=== PATIENT | male | born 2005 | race Two or more races ===

== ENCOUNTER 2025-03-04 16:40 | Emergency (ER) | payer MEDICAID, OTHER ==
[~2025-03-04] VITALS: Ht 180.3 cm; Wt 63.0 kg
[2025-03-04 19:44] LABS: Hematocrit 49.6 % (41.0-53.0); Hemoglobin 16.6 g/dL (13.5-17.5); Mean Corpuscular Hemoglobin 29.4 pg (28.0-32.0); Mean Corpuscular Volume 88.0 fL (80.0-100.0); Nucleated Red Blood Cells % 0.2 %
[2025-03-04 19:49] LABS: Alanine Aminotransferase 25 U/L (7-40); Alkaline Phosphatase 75 U/L (46-116); Anion Gap 11 (5-15); BUN/Creatinine Ratio 6.8 (10.0-20.0); Calcium 9.8 mg/dL (8.7-10.4); Carbon Dioxide 26 mmol/L (20-31); Chloride 103 mmol/L (98-107); Glucose 103 mg/dL (74-106); Potassium 3.6 mmol/L (3.5-5.1); Sodium 140 mmol/L (136-145); Total Protein 7.9 g/dL (5.7-8.2)
[2025-03-04 19:50] LABS: Bilirubin, Total 0.9 mg/dL (0.2-1.0)
[2025-03-04 19:54] LABS: Albumin 5.2 g/dL (3.2-4.8); Blood Urea Nitrogen 6 mg/dL (9-23)
--- NOTE | 2025-03-04 21:10 | ED.PDOC ---
Psychiatric HPI Comments HPI: 19-year-old male came to ER for mental health issues. Patient states he has been feeling suicidal, "doesn't want to be here anymore" for the past 3 weeks. Has plans of cutting himself. Denies being homicidal. Denies any hallucinations. Denies taking any drugs Past Medical History: Denies Past Surgical History: Denies Social History: Medications: Allergies: HPI: Poor Historian. Past Medical History: Past Surgical History: REVIEW OF SYSTEMS: CONSTITUTIONAL: Denies acute: fever, diaphoresis, chills, generalized weakness. HEAD: Denies acute: headache, photophobia Eyes: Denies acute: Double vision, vision loss, eye pain, eye discharge. EARS: Denies acute: tinnitus, hearing loss, ear discharge, ear pain, THROAT: Denies acute: sore throat, swelling, difficulty swallowing , pain with swallowing, change in voice. NECK: Denies acute: neck pain, neck swelling, stiff neck. HEART: Denies acute : chest pain, palpitations, LUNGS: Denies acute: SOB, wheezing, cough, hemoptysis ABDOMEN: Denies acute: abdominal pain, Nausea, Vomiting, diarrhea, melena , hematemesis, hematochezia SKIN: Denies acute: rash, redness, lesions, itchiness. EXTREMITIES: Denies acute: calf pain, numbness, tingling, weakness, denies pain in extremity. Denies acute: Low back pain. Neuro: Denies acute: focal neurological deficit, motor or sensory focal neurological deficit, tremors, seizure like activity, confusion, dizziness, change in mental status, loss of bowel or bladder function, cauda equina like symptoms. : Denies acute: dysuria, hematuria, flank pain, increase in urinary frequency. PSYCH: Denies acute: hallucination, , homicidal ideation. PHYSICAL EXAM: General: ----no----acute distress, awake and alert. Head: normocephalic, atraumatic. No raccoon's eyes, no alcaraz sign. Neck: supple, trachea is midline, no swelling. Throat: Normal phonation. Eyes:, no erythema, no purulent discharge, no proptosis, no icterus. Heart: regular rate, regular rhythm, no significant murmur appreciated. Lungs: no apparent respiratory distress, Able to speak in full sentences. No wheezing, no rhonchi, no crackles. No stridors Clear to auscultation bilaterally. Abdomen: non tender to palpation, non distended, soft, no guarding, no rebound, + bowel sounds. Noted left upper extremity healed findings due to self-harming in the past. Neuro: Awake, Alert, oriented to name, self, situation, follows commands GCS=15. Speech is normal. Skin: no petechia, no purpura, no cyanosis, non-pale, not jaundice. Lower extremities: --no - Pitting edema no deformity, no focal swelling, no calf TTP. Makes eye contact. moves all four extremities. Face: no apparent facial droop. Ambulating in the ED independently. ED COURSE: DISCLAIMER: This medical document was created using an electronic medical record system with voice recognition software and computerized dictation system. Although this d ocument has been carefully reviewed, there might still be some phonetic and typographical errors. Occasional wrong-word or "sound-alike" substitutions may have occurred due to the inherent limitations of voice recognition software. These areas are purely typographical due to imperfections of the software programs and do not reflect any compromise in the patient's medical care. Please read the chart carefully and recognize, using context, where these substitutions have occurred. Chief Complaint: Suicidal Time Seen by MD: 21:09 Reviewed Notes: Nurses Notes, Allergies Information Source: Patient Mode of Arrival: Ambulatory Severity: Unable to Care for Self, Unable to Control Self Was a procedure done? Was a procedure done?: No Psych Differential Dx Psych. Differential Dx: Anxiety, Depression, Hopeless, Suicidal Suicidal Differential Dx: Alcohol Abuse, Anxiety, Bipolar Disorder, Conversion Disorder, Depression, Homicidal, Laceration, Panic Disorder, Personality Disorder, Schizoprenia, Substance Abuse X-Ray, Labs, Meds, VS Vital Signs Date Time Temp Pulse Resp B/P (MAP) Pulse Ox O2 Delivery O2 Flow Rate FiO2 03/04/25 19:30 98.1 106 18 122/70 (87) 99 98.1 03/04/25 19:30 Room Air* 0 21 03/04/25 16:42 97.6 126 18 135/96 97 97.6 Lab Test 03/04/25 20:15 03/04/25 17:20 Range/Units Urine Opiates Screen Neg NEGATIVE Urine Fentanyl Screen Neg NEGATIVE Urine Barbiturates Screen Neg NEGATIVE Urine Phencyclidine Screen Neg NEGATIVE Urine Amphetamines Screen Neg NEGATIVE Urine Benzodiazepines Screen Neg NEGATIVE Urine Cocaine Screen Neg NEGATIVE Urine Cannabinoids Screen Neg NEGATIVE White Blood Count 9.0 4.4-10.8 10^3/uL Red Blood Count 5.63 4.5-5.90 10^6/uL Hemoglobin 16.6 13.5-17.5 g/dL Hematocrit 49.6 41.0-53.0 % Mean Corpuscular Volume 88.0 80.0-100.0 fL Mean Corpuscular Hemoglobin 29.4 28.0-32.0 pg Mean Corpuscular Hemoglobin Concent 33.4 32.0-36.0 g/dL Red Cell Distribution Width 14.1 11.8-14.3 % Platelet Count 294 140-450 10^3/uL Mean Platelet Volume 7.8 6.9-10.8 fL Neutrophils (%) (Auto) 68.1 37.0-80.0 % Lymphocytes (%) (Auto) 18.7 10.0-50.0 % Monocytes (%) (Auto) 11.3 0.0-12.0 % Eosinophils (%) (Auto) 1.3 0.0-7.0 % Basophils (%) (Auto) 0.6 0.0-2.0 % Neutrophils # (Auto) 6.1 1.6-8.6 10 ^3/uL Lymphocytes # (Auto) 1.7 0.4-5.4 10 ^3/uL Monocytes # (Auto) 1.0 0-1.3 10 ^3/uL Eosinophils # (Auto) 0.1 0-0.8 10 ^3/uL Basophils # (Auto) 0.1 0-0.2 10 ^3/uL Nucleated Red Blood Cells 0.2 % Sodium Level 140 136-145 mmol/L Potassium Level 3.6 3.5-5.1 mmol/L Chloride Level 103 98-107 mmol/L Carbon Dioxide Level 26 20-31 mmol/L Anion Gap 11 5-15 Blood Urea Nitrogen 6 L 9-23 mg/dL Creatinine 0.88 0.700-1.30 mg/dL Glomerular Filtration Rate Calc 126 >90 mL/min BUN/Creatinine Ratio 6.8 L 10.0-20.0 Serum Glucose 103 74-106 mg/dL Calcium Level 9.8 8.7-10.4 mg/dL Total Bilirubin 0.9 0.2-1.0 mg/dL Aspartate Amino Transferase (AST) 27 13-40 U/L Alanine Aminotransferase (ALT) 25 7-40 U/L Alkaline Phosphatase 75 46-116 U/L Total Protein 7.9 5.7-8.2 g/dL Albumin 5.2 H 3.2-4.8 g/dL Acetaminophen Level < 2.0 L 10.0-20.0 UG/ML Plasma/Serum Blood Alcohol 3.7 <10 mg/dL Time of 1ST Reevaluation: 21:07 Reevaluation 1ST: Unchanged Patient Education/Counseling: Diagnosis, Treatment Family Education/Counseling: No Family Present Assigned to Dr. dr. Arenas Comments MDM: patient presented with the above HPI.--suicidal ideation/psych evaluati on----workup was initiated. patient was found with the above mentioned diagnosis. the following medications were ordered: please refer to order lists of meds and tests obtained by myself Dr. Trevino. Patient ED course and VS have been stabilized. Patient has been reassessed in the ED and remained in a stable condition. Pertinent incidental findings were discussed with the patient and/or family. Patient/family voices understanding and is agreeable with plan. Patient has been observed in the ED adequate length of time to insure improvement/stability. Escalation of care considered: Consideration of escalation to observation or admission Patient's course has been unremarkable. He has been cooperative and quiet and calm. Tele psych was consulted as seen below. Patient was medically cleared. Patient is awaiting transferred to a psychiatric facility for further evaluation and treatment. All the reports of any imaging studies that were ordered by myself were reviewed by myself. Psychiatry recommendation: Assessment: 19 yo pt with no formal PPH presents to ED BIB self for safety, psychiatric stabilization, and possible med initiation/optimization in setting of recent homelessness, depression, anxiety, and passive SI Pt currently expressing SI in setting of several recent acute life stressors (see hpi). Limited protective factors presently. Not on any psychotropics Acute safety risk remains slightly elevated and is appropriate for inpatient psychiatric admission for further safety, psychiatric stabilization, and possible medication initiation. Pt willing to transfer to inpt psych facility voluntarily. Consider 5150 hold for DTS ONLY if needed for transfer or if no voluntary beds are available. Pt may also benefit from housing/MH resources during this admission Primary Diagnosis: Adjustment disorder with depressed mood and anxiety. Depressive disorder unspecified Recommend VOL transfer to inpt psych facility for higher level of care 1:1 sitter is recommended Maintain suicide precautions Recommend starting Sertraline 50 mg po qAM and mirtazapine 15 mg qhs (first dose now) Risks/benefits/alternative treatments discussed, informed consent provided by pt If patient later refuses voluntary hospitalization/ requests to be discharged from ED prior to transfer, please reconsult telepsych services to evaluate for 5150 hold Pt verbalized understanding and is receptive to above tx plan This case was discussed with ED nurse/provider and all parties in agreement with above tx plan Gama Gomez MD Plan discussed with: Patient GAMA GOMEZ MD Mar 05, 2025 00:00 DICTATED BY:GAMA GOMEZ MD DICTATED DATE/TIME:03/05/25 0000 ELECTRONICALLY SIGNED BY:GAMA GOMEZ MD 03/05/25 0000 ELECTRONICALLY CO-SIGNED BY: Departure 1 Departure Time of Disposition: 21:17 Impression: Primary Impression: Patient needs psychiatric hold for evaluation Additional Impression: Suicidal ideation Disposition: 02 SHORT TERM HOSPITAL Condition: Guarded Discharged With: Self Critical Care Note Critical Care Time?: No Heart Score Heart Score: Heart Score Response (Comments) Value History N/A 0 EKG N/A 0 Age N/A 0 Risk Factors N/A 0 Troponin N/A 0 Total 0 I personally scribed for YADI TREVINO DO ([email or web address]) on 03/04/25 at 21:10. Electronically submitted by Tyree Jiménez ([email or web address]). YADI TREVINO DO Mar 04, 2025 21:10
[2025-03-04 22:16] LABS: Amphetamine Screen, Urine Neg (NEGATIVE); Barbiturate Scree,Urine Neg (NEGATIVE); Benzodiazephine Screen, Urine Neg (NEGATIVE); Cannabinoid Screen, Urine Neg (NEGATIVE); Cocaine Screen, Urine Neg (NEGATIVE); Opiate Scree,Urine Neg (NEGATIVE); Phencyclidine Screen, Urine Neg (NEGATIVE)
--- NOTE | 2025-03-05 | DVHINCON2 ---
Date of Service if different f: Mar 04, 2025 Time of Service: 23:31 Consult Consult Note PSYCHIATRY ED NEW CONSULT HPI: 19 yo pt with no formal PPH presents to ED BIB self for safety, psychiatric stabilization, and possible med initiation/optimization in setting of recent homelessness, depression, anxiety, and passive SI. Psychiatry consulted for safety evaluation and recommendations in context of current presentation Pt reports over past several weeks experiencing worsening depressed mood, hopelessness/helplessness, lack of purpose, negative thoughts, isolation/withdrawn, loss of interest, decreased energy, difficulty with focus, poor sleep/appetite, low self-worth, amotivation, and anxiety symptoms to include excessive worry, rumination, emotional dysregulation, restlessness, racing/intrusive thoughts, palpitations, feeling tensed, and irritability. Also intermittent fleeting SI with plan to starve self, also recent cut self s uperficially on arms with razor blade, resulting in some interference with daily functioning. Identifies primary stress as unemployment, recent break-up with partner, inadequate housing, limited support system, and financial strains. Denies HI/AVH/paranoia/catatonic/manic/dissociative symptoms. Denies recent hx of impulsivity or engaging in risky/reckless behaviors Does have active outpt MH services established at this time (therapy only) Currently not on any psychotropic agents, no prior psych med trials PIOTR hx: Denies ETOH, THC or IDU SH: Single, no children, unemployed, recently unsheltered (got kicked out of parents residence), limited support system noted (immediate family). Unknown trauma hx FH: Denies FH of psych hospitalizations, suicide attempts, or completed suicides PMH: No acute medical/chronic pain issues, hx of seizures/TBI, HIV/hep C, cardiac dz, or recent head injuries, NKDA Denies hx of SIB/SA/PSG or prior psych hospitalizations/5150 holds. Denies history of violence, aggression, or assaultive behaviors. Denies any legal problems. Does not have access to firearms MSE: General Appearance/Behavior: Alert/awake; appears stated age, slightly underweight, fair grooming/hygiene; calm/polite and cooperative, fair eye contact, no PMA/PMR Speech: coherent, rrr Thought Process: L/L/GD Thought Content: Abnormal Thoughts/Perceptions: denies dissociative symptoms Homicidality / Violent Thoughts: adamantly denies HI Suicidality: + SI Hallucinations: denies AVTH Delusions: denies paranoia, persecutory, or grandiose delusions Obsessions /compulsions: None Judgment/Insight: fair/fair Mood & Affect: "depressed" with mood-congruent, somewhat restricted/appropriate Orientation: oriented x 3 Attention/Concentration: appears intact Cognition: grossly intact Assessment: 19 yo pt with no formal PPH presents to ED BIB self for safety, psychiatric stabilization, and possible med initiation/optimization in setting of recent homelessness, depression, anxiety, and passive SI Pt currently expressing SI in setting of several recent acute life stressors (see hpi). Limited protective factors presently. Not on any psychotropics Acute safety risk remains slightly elevated and is appropriate for inpatient psychiatric admission for further safety, psychiatric stabilization, and possible medication initiation. Pt willing to transfer to inpt psych facility voluntarily. Consider 5150 hold for DTS ONLY if needed for transfer or if no voluntary beds are available. Pt may also benefit from housing/MH resources during this admission Primary Diagnosis: Adjustment disorder with depressed mood and anxiety. Depressive disorder unspecified Recommend VOL transfer to inpt psych facility for higher level of care 1:1 sitter is recommended Maintain suicide precautions Recommend starting Sertraline 50 mg po qAM and mirtazapine 15 mg qhs (first dose now) Risks/benefits/alternative treatments discussed, informed consent provided by pt If patient later refuses voluntary hospitalization/ requests to be discharged from ED prior to transfer, please reconsult telepsych services to evaluate for 5150 hold Pt verbalized understanding and is receptive to above tx plan This case was discussed with ED nurse/provider and all parties in agreement with above tx plan Gama Gomez MD Plan discussed with: Patient GAMA GOMEZ MD Mar 05, 2025 00:00
[2025-03-05] MEDS ORDERED: MIRTAZAPINE 30 MG TAB PO ONE (07:16)
[2025-03-05] MEDS: MIRTAZAPINE 30 MG TAB PO ONE (07:16)
[2025-03-05 07:40] VITALS: PULSE 95; RESP 17; O2SAT 97
[2025-03-06 07:30] VITALS: PULSE 101; RESP 18; O2SAT 96
[2025-03-07 19:35] VITALS: PULSE 88; RESP 14; O2SAT 99
[2025-03-08 07:36] VITALS: PULSE 98; RESP 16; O2SAT 100
[2025-03-08 16:54] VITALS: BP 129/89; PULSE 107; RESP 16; TEMP 100; O2SAT 95
== END 2025-03-08 18:37 | disposition short-term general hospital (02) ==
LOC: ER 16:40
DX: R45.851 Suicidal ideations (principal)
CPT/HCPCS: 36415; 80053; 80307; 80320; 80329; 85025